=== PATIENT | male | born 2000 | race Caucasian/White ===

== ENCOUNTER 2023-12-10 22:10 | Emergency (ER) | payer OTHER, SELFPAY ==
[2023-12-10 22:15] VITALS: BP 152/100
[2023-12-10 22:58] LABS: % Basophils 0.7 % (0-2); % Eosinophils 1.2 % (0-6); % Immature Granulocytes 0.6 % (0-0.5); % Lymphocytes 26.6 % (20.5-51.1); % Monocytes 8.3 % (1.7-9.3); % Neutrophils 62.6 % (42.2-75.2); Absolute Basophils 0.1 10^3/uL (0-0.2); Absolute Eosinophils 0.1 10^3/uL (0-0.7); Absolute Lymphocytes 1.9 10^3/uL (1.2-3.4); Absolute Monocytes 0.6 10^3/uL (0.1-0.6); Absolute Neutrophils 4.5 10^3/uL (1.4-6.5); Hematocrit 43.2 % (39.0-52.0); Hemoglobin 15.6 g/dL (13.0-18.0); Mean Corp Hgb Conc. 36.1 g/dL (33.0-37.0); Mean Corpuscular Hgb 30.6 pg (27.0-31.0); Mean Corpuscular Volume 84.7 fL (80.0-94.0); Mean Platelet Volume 9.2 fL (7.4-10.4); Nucleated Red Blood Cells % 0 % (-); Platelet Count 243 10^3/uL (130-400); Red Cell Dist. Width 12.6 % (11.5-14.5); White Blood Cell Count 7.2 10^3/uL (4.8-10.8)
[2023-12-10 23:01] LABS: Urine Albumin Negative (Neg - Trace); Urine Bilirubin Negative (Negative); Urine Character Clear (Clear); Urine Color Straw; Urine Glucose Negative (Negative); Urine Ketone Negative (Negative); Urine Leukocyte Negative (Negative); Urine Nitrite Negative (Negative); Urine Occult Blood Negative (Negative); Urine Specific Gravity 1.005 (<1.030); Urine Urobilinogen Negative (Neg - 1+)
[2023-12-10 23:14] LABS: ALT (SGPT) 30 U/L (0-50); AST (SGOT) 33 U/L (17-59); Albumin 5.3 g/dl (3.5-5.0); Alkaline Phosphatase 55 U/L (38-126); Blood Urea Nitrogen 23 mg/dl (9-20); Calcium 10.3 mg/dl (8.4-10.2); Carbon Dioxide 24 mmol/L (22-30); Chloride 102 mmol/L (98-107); Glucose 96 mg/dl (70-99); Potassium 3.9 mmol/L (3.5-5.1); Sodium 137 mmol/L (135-145); Total Bilirubin 0.5 mg/dl (0.2-1.3); Total Protein 7.9 g/dl (6.3-8.2); eGFR > 60.00
--- NOTE | 2023-12-11 00:01 | ED.GENMED ---
History of Present Illness
General
Chief Complaint: Flank Pain
Source: patient and family (Mother)
Exam Limitations: none
Time Seen by Provider: 12/10/23 22:32
Nursing documentation reviewed up to this point in time: agreed with
Travel History
Have you had any contact with someone who has COVID-19?: No
Do you have any symptoms of coronavirus? Fever > 100 degrees, chills, cough, shortness of breath, sore throat, loss of taste or smell, muscle aches, or headache?: No
History of Present Illness
History of Present Illness:
23-year-old male with no significant chronic medical issues presents to the emergency room with his mother for evaluation of abdominal pain. Patient reports onset of symptoms 2 days ago and they have been intermittent since that time. He reports
sharp pains in the right lower abdomen. No clear triggering or relieving factors noted�he says sometimes it seems worse when he sits up but not consistently. He denies any associated nausea or vomiting. He has had some loose stools. No
constipation. He denies any dysuria, hematuria, change in urinary frequency. Denies any testicular pain or swelling. He denies any fevers or chills. He denies having had similar symptoms in the past. Denies any history of abdominal surgeries.
Review of Systems
Review of Systems
All Other Systems: ROS reviewed and negative except as documented in HPI and ROS
Constitutional: Denies fever or chills
Respiratory: Denies trouble breathing
Cardiac: Denies chest pain
ABD/GI: Reports abdominal pain and diarrhea; Denies nausea, vomiting or constipated
: Denies dysuria, frequency, flank pain or bleeding
Musculoskeletal: Denies neck pain or back pain
Neurological: Denies dizzy, headache, weakness or numbness
Phy Exam
Physical Exam
Physical Exam:
General: Awake, alert, oriented x3; no acute distress
Head: Normocephalic, atraumatic
Eyes: Conjunctiva normal
Throat: Airway intact, handling secretions
Neck: Trachea midline
Lungs: Clear to auscultation bilaterally, no wheezing, rales, rhonchi
Heart: Regular rate and rhythm, no murmurs, gallops, or rubs
Abd: Soft, non distended, mildly tender right lower quadrant no peritoneal sign
Back: No CVA tenderness
: Normal testicular lie, no scrotal swelling
Neuro: Cranial nerves grossly intact, speech fluid
Skin: no rash
Extremities: No edema in extremities, warm and well-perfused
Scores
Heart Failure Risk
Heart Failure Risk Score: Not Applicable
Heart Score for Chest Pain Patients
STEMI patient?: Not applicable
Withdrawal Assessment of Alcohol
Withdrawal Assessment Completed?: Not applicable
Course
Orders/Labs/Results
Orders:
Orders
12/10/23 22:52
CMP [Comprehensive Metabolic Panel] Urgent
Complete Blood Count/With Diff Urgent
Lipase Urgent
Comment: ADD ON
Urine Reflex Culture from UA [Urinalysis Reflex To Culture] Urgent
Date Specimen was Collected: 12/10/23
Time Specimen was Collected: 22:51
12/11/23 00:00
CT Abd/pelvis W Iv Cont Urgent
Reason For Exam: RLQ pain
12/11/23 00:13
Add On- LAB Urgent
Tests Added?: Lipase
Abnormal Lab Results
12/10/23
22:52
Immature Gran % 0.6 H %
(0-0.5)
BUN 23 H mg/dl
(9-20)
Calcium 10.3 H mg/dl
(8.4-10.2)
Albumin 5.3 H g/dl
(3.5-5.0)
12/10/23 22:52
12/10/23 22:52
Vital Signs
Initial and Last Documented VS:
Initial Vital Signs
Temp Pulse Resp BP Pulse Ox
36.8 C 94 20 152/100 99
12/10/23 22:15 12/10/23 22:15 12/10/23 22:15 12/10/23 22:15 12/10/23 22:15
Last Documented Vital Signs
Temp Pulse Resp BP Pulse Ox
36.8 C 96 18 152/83 99
12/10/23 22:15 12/11/23 00:33 12/11/23 00:33 12/11/23 00:33 12/11/23 00:33
MDM/Problems Addressed
Differential Diagnosis Includes:
Appendicitis, nephrolithiasis, UTI, abdominal wall strain, hernia
MDM/Problems Addressed:
23-year-old male presents to the emergency room for evaluation of right lower quadrant abdominal pain for the past 2 days. Hypertensive but otherwise normal vitals. Exam as above. Will check labs including CBC and CMP. Check urinalysis. Will
check CT abdomen pelvis. Offered pain medication, patient declined. Reassess after the above.
Labs reviewed: CBC and CMP unremarkable. Urinalysis negative for infection, no blood. CT pending.
CT shows signs consistent with enteritis which fits with patient's clinical presentation with pain and diarrhea. I think he is stable for discharge at this point in time. Advised good p.o. hydration, Motrin as needed. Will follow-up with his
primary care physician. He feels comfortable with this plan. Spoke about return precautions all questions answered.
Acute Exacerbation and/or Progression of Chronic Illness:
Acutely hypertensive
Acute Exacerbation and/or Progression of Chronic Illness: HTN
*Radiology
Radiology exam reviewed: radiology read reviewed
*Pulse Oximetry
Patient hypoxic: no
*Critical Care Note
Total Time (30-74mins, 75-104mins- exclusive of procedures): Not Applicable
Data Reviewed
Source: patient, records and family (Mother)
ED Attending Note
-
Portions of this chart may have been created with voice recognition software.� Occasional wrong word or��sound alike� substitutions may have occurred due to the inherent limitations of voice recognition software.
Discharge Plan
Departure
Patient Disposition: Home (Routine Discharge)
Date of Disposition: 12/11/23
Time of Disposition: 01:40
Patient with high blood pressure during this ER visit?: Yes
Discharge Problem:
Enteritis
Instructions: Viral gastroenteritis in adults
Prescriptions:
No Action
No Current Medications
0
Referrals:
Abhishek Washington MD [Family Provider] - Call in 1-3 days for appt
Activity Restrictions/Additional Instructions:
Thank you for visiting the Emergency Department at [facility].
1. Please schedule a follow up appointment as directed. Call first thing tomorrow morning to make an appointment.
2. If indicated, please take your medications as instructed and indicated on discharge paperwork.
3. If any of your symptoms do not improve, or persist, or become more severe within 6-12 hours, please return to the emergency department for further care.
4. Please return to the emergency department if you develop a headache, neck pain/stiffness, fever greater than 100.4F, chest pain, shortness of breath, persistent nausea, vomiting, slurred speech, difficulty walking, numbness/tingling, weakness,
signs of infection or any other symptoms that are worrisome to you.
Please call [phone] if you have any questions.
Interventions
Interventions:
*Risk Screen - Suicide Last Done: 12/10/23 22:15
*General Assessment Last Done: 12/10/23 22:15
*Neglect/Abuse Screening Last Done: 12/10/23 22:15
ED- Fall Risk Assessment Last Done: 12/10/23 23:01
NU-Iysjta-Peepyxrtaf Assessment Last Done: 12/10/23 23:01
ED-Male Genitourinary Assessment Last Done: 12/10/23 23:01
Discharge Date and Time
Print Language: [id number]
[2023-12-11 00:33] VITALS: BP 152/83
[2023-12-11 01:22] LABS: Lipase 50 U/L (23-300)
== END 2023-12-11 01:58 | disposition home or self-care (01) ==
LOC: EMR 22:10
PROVIDERS: EMERGENCY PHYSICIAN Emergency Medicine; FAMILY PHYSICIAN Family Medicine
DX: K52.9 Noninfective gastroenteritis and colitis, unspecified (principal); R03.0 Elevated blood-pressure reading, without diagnosis of hypertension
CPT/HCPCS: 99284; 74177; 80053; 81003; 83690; 85025; Q9967